=== PATIENT | female | born 1975 | race Caucasian/White ===

== ENCOUNTER 2021-10-13 16:08 | Emergency (ER) | payer MEDICAID ==
[~2021-10-13] VITALS: Ht 154.9 cm; Wt 59.0 kg
[2021-10-13] MEDS ORDERED: ACETAMINOPHEN 325MG TABLET PO NR (19:00)
[2021-10-13 21:29] VITALS: BP 138/85
== END 2021-10-13 21:31 | disposition home or self-care (01) ==
LOC: ER 16:08
DX: S00.83XA Contusion of other part of head, initial encounter (principal); Y08.89XA Assault by other specified means, initial encounter; Y93.89 Activity, other specified; Y92.89 Other specified places as the place of occurrence of the external cause; Y99.8 Other external cause status; H57.12 Ocular pain, left eye; M54.6 Pain in thoracic spine
CPT/HCPCS: 70486; 71045; 73010; 81025; 99284